=== PATIENT | female | born 1990 | race Caucasian/White ===

== ENCOUNTER 2022-08-07 07:09 | Outpatient (CLI) | payer OTHER, SELFPAY ==
--- NOTE | 2022-08-07 07:15 | CRLHL7_ITS ---
For Patients: As a result of the Cures Act, medical imaging exams and procedure reports are released immediately into your electronic medical record. You may view this report before your referring provider. If you have questions, please contact your health care provider. INDICATION: First trimester scan, establish dates. COMPARISON: None. TECHNIQUE: Real-time christiansen-scale imaging of the pelvis was performed. FINDINGS: Sonographic imaging demonstrates a single living intrauterine gestation. The embryo demonstrates a regular cardiac rate measuring 159 beats per minute. The embryo`s crown-rump length measurement of 1.7 cm corresponds to a gestational age of 8 weeks 1 day with a sonographic due date of 03/18/2023. There is a normal-appearing yolk sac. There are no gross abnormalities noted within the embryo at this early state of development. The gestational sac has a normal appearance. There is no evidence of a perigestational hemorrhage. The amount of fluid within the sac appears appropriate for gestational age. The cervix is closed. The myometrium appears normal. The ovaries are of normal size. Corpus luteal cyst right ovary. There are no suspicious fluid collections noted in the cul-de-sac. IMPRESSION: Normal first trimester OB ultrasound exam. Gestational age calculated at 8 weeks 1 day with a sonographic due date of 03/18/2023. Dictated by Abiel Caldera MD @ 08/07/2022 8:58:50 AM (Electronically Signed)
== END 2022-08-07 07:10 | disposition home or self-care (01) ==
PROVIDERS: Visit Provider Advanced Practice Midwife
DX: Z34.91 Encounter for supervision of normal pregnancy, unspecified, first trimester (principal); Z3A.08 8 weeks gestation of pregnancy
CPT/HCPCS: 76817

== ENCOUNTER 2022-08-07 08:55 | Outpatient (CLI) | payer OTHER, SELFPAY ==
[2022-08-07 14:15] LABS: Chlamydia DNA Amplified* NOT DETECTED (No Detected); GC DNA Amplified* NOT DETECTED (No Detected)
== END 2022-08-07 08:56 | disposition home or self-care (01) ==
PROVIDERS: Visit Provider Advanced Practice Midwife
DX: Z34.91 Encounter for supervision of normal pregnancy, unspecified, first trimester (principal); Z3A.08 8 weeks gestation of pregnancy
CPT/HCPCS: 0353U; 86592; 86703; 86762; 86787; 86803; 86850; 86900; 86901; 87086; 87340

== ENCOUNTER 2022-09-16 10:06 | Outpatient (CLI) | payer OTHER, SELFPAY | END 2022-09-16 10:07 | disposition home or self-care (01) | PROVIDERS: Visit Provider Obstetrics & Gynecology | DX: Z34.91 Encounter for supervision of normal pregnancy, unspecified, first trimester (principal); Z3A.13 13 weeks gestation of pregnancy | CPT/HCPCS: 81511; 82105 ==

== ENCOUNTER 2022-11-01 08:03 | Outpatient (CLI) | payer OTHER, SELFPAY ==
--- NOTE | 2022-11-01 08:15 | CRLHL7_ITS ---
For Patients: As a result of the Century Cures Act, medical imaging exams and procedure reports are released immediately into your electronic medical record. You may view this report before your referring provider. If you have questions, please contact your health care provider. INDICATION: Evaluate anatomy. COMPARISON: 08/07/2022 TECHNIQUE: Real time christiansen scale imaging of the fetus was performed as well as color Doppler analysis of the umbilical vessels. FINDINGS: Sonographic imaging demonstrates a single living intrauterine gestation. Fetus demonstrates a regular cardiac rate of 144 beats per minute. Fetus has a vertex position. The placenta lies anteriorly without evidence of placenta previa. The edge of the placenta is located 8.6 cm from the internal cervical os. Amniotic fluid volume appears normal. Single deepest vertical pocket: 5.4 cm. The cervix is closed and measures 3.6 cm in length. The composite ultrasound gestational age is calculated at 20 weeks 5 days with an estimated sonographic due date of 03/16/2023. The estimated weight is 343 grams which lies at the 36th %. The following biometric measurements were obtained: Biparietal diameter: 4.8 cm/20 weeks 4 days 57th% Head circumference: 18.4 cm/20 weeks 5 days 58th% Abdominal circumference: 15.1 cm/20 weeks 2 days 41st% Femur length: 3.2 cm/20 weeks 0 days 27th% The HC/AC ratio measures: 1.22 range (1.06-1.25) On anatomic survey, there is a normal appearance of the cerebral ventricles, cavum septi pellucidi, cisterna magna and cerebellum. The nose, lips, and facial profile appear normal. The cervical, thoracic and lumbar spine are well visualized and appear normal. There is a normal four-chamber heart view and the left and right ventricular outflow tracts appear normal. The diaphragm and stomach appear normal. The kidneys and bladder also appear normal. There is a normal three-vessel cord and cord insertion site. The four extremities appear normal. IMPRESSION: Normal OB ultrasound exam with concordance of clinical and sonographic dating. No intrinsic abnormalities noted on anatomic survey. Dictated by Abiel Caldera MD @ 11/01/2022 2:16:06 PM (Electronically Signed)
== END 2022-11-01 08:04 | disposition home or self-care (01) ==
LOC: US 08:03
PROVIDERS: Visit Provider Obstetrics & Gynecology
DX: Z34.92 Encounter for supervision of normal pregnancy, unspecified, second trimester (principal); Z3A.20 20 weeks gestation of pregnancy
CPT/HCPCS: 76805

== ENCOUNTER 2023-01-03 11:28 | Outpatient (CLI) | payer OTHER, SELFPAY | END 2023-01-03 11:29 | disposition home or self-care (01) | LOC: NFLDREF 11:29 | PROVIDERS: Visit Provider Physician Assistant | DX: Z34.93 Encounter for supervision of normal pregnancy, unspecified, third trimester (principal); Z3A.29 29 weeks gestation of pregnancy | CPT/HCPCS: 86592; 86850; J2791 ==

== ENCOUNTER 2023-02-17 08:55 | Outpatient (CLI) | payer OTHER, SELFPAY ==
[2023-02-18 11:14] LABS: Strep B DNA Probe NEGATIVE (Negative)
[2023-02-19 23:13] LABS: Strep B Pen/Amox Allergy No
== END 2023-02-17 08:56 | disposition home or self-care (01) ==
LOC: NFLDREF 08:55
PROVIDERS: Visit Provider Obstetrics & Gynecology
DX: Z34.90 Encounter for supervision of normal pregnancy, unspecified, unspecified trimester (principal)
CPT/HCPCS: 87081; 87653

== ENCOUNTER 2023-03-07 04:55 | Inpatient (IN) | payer OTHER, SELFPAY ==
[2023-03-07] VITALS (69 sets, daily range): BP systolic 81–157; BP diastolic 47–120; PULSE 65–125; RESP 16–22; TEMP 36.6–37.7; O2SAT 91–100; BMI 32.5
[2023-03-07 05:15] LABS: Basophils Absolute Auto 0.02 K/uL (0.00-0.30); Basophils Percent Auto 0.2 % (0.0-3.0); Eosinophils Absolute Auto 0.09 K/uL (0.00-0.50); Eosinophils Percent Auto 0.9 % (0.0-7.0); Hematocrit 34.4 % (33.0-51.0); Hemoglobin* 11.2 gm/dL (12.0-16.0); Immature Granulocytes Abs Auto 0.05 K/uL (0.00-0.30); Immature Granulocytes Pct Auto 0.5 %; Mean Corpuscular HGB Conc 33 gm/dL (32-36); Mean Corpuscular Hemoglobin 28 pg (26-34); Mean Corpuscular Volume 87 fL (80-100); Monocytes Percent Auto 8.7 % (0.0-11.0); Neutrophils Percent Auto 74.7 % (42.0-72.0); Platelet Count* 222 K/uL (140-440); RDW Coefficient of Variation % 13.1 % (11.5-15.5); Red Blood Count 3.95 m/uL (4.00-5.20); White Blood Count* 10.31 K/uL (4.50-11.00)
[2023-03-07] MEDS: LACTATED RINGERS 1000 ML 1,000 ML 600 ML IV ×2 (05:16→06:15)
[2023-03-07 05:27] LABS: Slide Review Reflex No
--- NOTE | 2023-03-07 05:36 | W.PM.LDBA ---
Subjective History of Present Illness Date Seen: 03/07/23 Narrative: Patient is being admitted to Labor and Delivery for spontaneous onset of labor. She is a 32 year old at 38 3/7 weeks gestation. Her full history and physical was dictated by Dr. Harvey on 02/24/23. Please see this for details. She was planning a repeat section on 03/18/23, but has decided she would rather attempt TOLAC. She is a good candidate. Consent form was reviewed and signed. Specific Issues/Plans : Chandan 1. Hx of anxiety and ADHD -has previously taken medication for anxiety, unsure which, stopped last fall -ADHD never treated -Start on Lexapro 10 mg at 1st visit 2. Hx of for breech -Favors repeat - Scheduled 03/18/[address] Harvey 3. A neg Blood Type Recommend Rhogam at 28 weeks: given 01/03/23 Recommend Rhogam pp 4. Anemia, hemoglobin 10.8 Ferrous sulfate 325 every other day Repeat hemoglobin at 34 weeks: 11.2 Pap due PP contraception: Depo provera COVID: declines Flu: 02/24/23 Tdap: 01/03/2023 OB - Problem Based A/P Additional Plan (1) Spontaneous onset of labor: Status: Acute (2) Previous delivery affecting : Status: Acute Plan Desires epidural for pain management. TOLAC consent signed. Delivery/Labor/Induction Plan Plan: expectant management OB Exam Physical Exam Vital signs: Pulse BP 79 131/80 03/07/23 04:39 03/07/23 04:39 Narrative: Lungs: clear to auscultation bilaterally CV: RRR Detailed Labor and Delivery Exam Patient Gravid: Yes Dilation (cm): 3 Effacement (%): 90 Cervix position: mid Consistency: soft Contraction Frequency: 2 minutes Tachysystole: No Contraction intensity: Strong/Firm Fetus (Single) Station: -2 Amniotic Membrane Status: intact Heart Rate Baseline: 130 Monitor Accelerations: Present Monitor Decelerations: None Shelter Variability: Moderate (6-25)
[2023-03-07] MEDS: ROPIVACAINE 0.2% 100 ml 100 ML 12 MG EPIDURAL ×2 (06:15→13:47)
[2023-03-07] MEDS: ROPIVACAINE 0.2 % PF 10 ML INJ 20 MG EPIDURAL (06:15)
[2023-03-07] MEDS: LIDOCAINE 2% (PF) 5 ML VIAL EPIDURAL (06:16)
--- NOTE | 2023-03-07 06:34 | PM.ANBPRC ---
[facility] [place] History (Updated 03/07/23 @ 05:44 by Yoly Fitzgerald MD) Rh negative status during ?O26.899 - Other specified related conditions, unspecified trimester (ICD-10) ?Z67.91 - Unspecified blood type, rh negative (ICD-10) History of varicella ?Z86.19 - Personal history of other infectious and parasitic diseases (ICD-10) History of recurrent urinary tract infection ?Z87.440 - Personal history of urinary (tract) infections (ICD-10) Dysmenorrhea ?N94.6 - Dysmenorrhea, unspecified (ICD-10) Surgical History (Updated 11/28/22 @ 15:25 by Catherine Harvey MD) [place] teeth extracted ?K08.409 - Partial loss of teeth, unspecified cause, unspecified class (ICD-10) Status post primary low transverse section ?Z98.891 - History of uterine scar from previous surgery (ICD-10) Family History (Updated 08/07/22 @ 08:56 by Shakira Matias CNM) Maternal Grandfather Leukemia Stroke Heart disease Myocardial infarction Skin cancer Maternal Grandmother Dementia Paternal Grandfather Colon cancer Father High blood pressure Brother Depression Social History (Updated 02/24/23 @ 09:03 by Catherine Harvey MD) Narrative: Non-smoker SOCIAL? ? Education: bachelors? ? 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 ? Partner: Chandan, , sales? ? Lives with: Chandan, daughter Asif Pets: dogs? ? Abuse: Denies past Safe at home with current partner ? ? Special Diet: Denies? ? Ok with a blood transfusion: yes? ? Culture or shinto beliefs: denies? RISK FACTORS? ? Exercise Times/wk: beach body? ? Depression/Anxiety: Anxiety, ADD? ? Previous Treatments Therapy KATHIE: 9 PHQ 9: 7? ? Seat Belt Use: Routinely ? Smoking: Denies past/present? ? Alcohol/day: Denies while ? ? Caffeine: 1 pop a day. ? ? Drug Use: Denies past/present? ? Smoking Status: Never smoker Little interest or pleasure in doing things: not at all Feeling down, depressed, or hopeless: not at all Meds Home Medications and Allergies Home Medications Medication Instructions Recorded Confirmed Type prenat.vits,andra,hhq-kpje-iwhnm 1 tab PO QDAY 08/07/22 03/07/23 History Allergies Allergy/AdvReac Type Severity Reaction Status Date / Time No Known Allergies Allergy Unknown Verified 03/07/23 06:33 Results Labs Labs: Laboratory Results - last 24 hr 03/07/23 05:05 WBC 10.31 RBC 3.95 L Hgb 11.2 L Hct 34.4 MCV 87 MCH 28 MCHC 33 RDW Coeff of Shayna 13.1 Plt Count 222 Neut % (Auto) 74.7 H Lymph % (Auto) 15.0 L [place] % (Auto) 8.7 Eos % (Auto) 0.9 Baso % (Auto) 0.2 Neut # (Auto) 7.70 H Lymph # (Auto) 1.50 [place] # (Auto) 0.90 Eos # (Auto) 0.09 Baso # (Auto) 0.02 Abs Immat Gran (auto) 0.05 Imm/Tot Granulo (auto) 0.5 Vital Signs Vital Signs: Last Vital Signs Pulse 86 03/07/23 06:33 BP 116/60 03/07/23 06:33 Pulse Ox 98 03/07/23 06:28 Weight: 83.461 kg Height: 160.02 cm Anesthesia Procedures Epidural Insertion Patient Location: OB Start Time: 05:30 Stop Time: 06:34 Start Date: 03/07/23 Stop Date: 03/07/23 Reason for Block: procedure for pain Patient Position: sitting Performed By: Mikal Talbot Preanesthetic Checklist: IV checked, risks and benefits discussed, surgical consent, monitors and equipment checked, pre-op evaluation, timeout performed and anesthesia consent Prep: chlorhexidine gluconate Monitoring: blood pressure monitoring, continuous pulse oximetry and heart rate Approach: midline Vertebral Space: lumbar (1-5) Epidural Technique: TROY air Needle Type: Tuohy needle Injection Technique: continuous catheter Needle gauge: 17 Needle Length (cm): 10 cm Needle Insertion Depth (cm): 7 Catheter Gauge: 19 Catheter Type: multi-orifice Catheter at skin depth (cm): 13 Test Dose Result: negative and lidocaine 1.5% with epinephrine 1 to 200,000
[2023-03-07] MEDS: OXYTOCIN 30 unit/500 ML in NS 30 UNIT/500 ML BAG IVPB (09:51)
[2023-03-07] MEDS: LACTATED RINGERS 1000 ML 1,000 ML 125 ML IV ×4 (14:39→19:31)
[2023-03-07] MEDS: CEFAZOLIN 2 GM INJ IVP (15:11)
[2023-03-07] MEDS: AZITHROMYCIN 500 MG in 0.9 % SODIUM CHLORIDE 250 ml 250 ML 255 MG IVPB (15:30)
--- NOTE | 2023-03-07 15:39 | CRLHL7_ITS ---
For Patients: As a result of the Century Cures Act, medical imaging exams and procedure reports are released immediately into your electronic medical record. You may view this report before your referring provider. If you have questions, please contact your health care provider. Indication: Emergent , check for foreign body. Technique: Abdomen 2 views. Permanently recorded images are archived. Comparison: None. Findings/Impression: Lines and tubes: Probable epidural catheter projects over the mid lumbar spine. No other intra-abdominal medical anthropologist or foreign body identified. Bowel: Nonobstructive bowel gas pattern. Normal colonic stool burden. Other: The osseous structures are unremarkable for age. The lung bases are clear. Findings discussed with Dr. Nieto at 4:20 PM PST on 03/07/2023. Dictated by Eder Lynn MD @ 03/07/2023 6:12:54 PM (Electronically Signed)
[2023-03-07] MEDS: TRANEXAMIC ACID 100 MG/ML INJ 1000 MG IV ×2 (16:05→16:35)
[2023-03-07 16:47] LABS: INR 0.98 (0.91-1.10); Prothrombin Time 13.5 Seconds
[2023-03-07 16:48] LABS: Partial Thromboplastin Time* 24 Seconds (23-33)
[2023-03-07 16:50] LABS: Fibrinogen* 379 mg/dL (200-450)
--- NOTE | 2023-03-07 16:50 | SUR.OPER ---
x-ray was taken at end of procedure to ensure no needles or laps were left in patient.
--- NOTE | 2023-03-07 17:35 | P.NB_ITS ---
Nerve Block Nerve Block Time Seen by Provider: 17:25 Date Seen: 03/07/23 Type of block requested by surgeon for post-operative analgesia: TAP Side: bilateral Time out performed: Yes Verification of patient name: Yes Verification of date of : Yes Site marking: site marked Name of person performing procedure: Anthony Mulligan Continuous monitoring Was continuous monitoring of O2 sat, B/P, court recording monitor, recorded every 15 minutes?: Yes Procedure Checklist: sterile prep, needles and gloves Ultrasound guided. Images saved: Yes Medications given in 5ml increments after negative aspiration: Marcaine %: 0.25 mL: 30 Needle gauge: 20 and Exparel mL: 10 Needle gauge: 20 Patient tolerated procedure well: Yes Additional comments: Injected in 5ml increments after negative aspiration Block Charges Block Charge (with Pro Fee): TAP Bilateral Use of Ultrasound Machine for Block: Yes- US Guidance/pain block
[2023-03-07] MEDS: fentaNYL 100 MCG/2 ML inj 50 MCG IVP ×2 (17:36→17:44)
--- NOTE | 2023-03-07 17:36 | P.ANES_ITS ---
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
--- NOTE | 2023-03-07 17:39 | PM.OBPNL ---
Subjective Time Seen by Provider: : Date Seen: 03/07/23 Narrative: I presented to examine patient after she is comfortable with an epidural. She decided to TOLAC as she went into labor on her own and progressing well. I did speak to her about risk of TOLAC, the biggest risk being uterine rupture. There is a 0.5-0.9% chance of uterine rupture with one prior low transverse section and 0.9-1.3%. Due to this risk, we will not be using prostaglandins for induction of labor. Pitocin will be used as needed. We discussed that in the event of uterine rupture, there could be catastrophic outcome including maternal hysterectomy, transfusion, infection, intensive care unit admission, maternal , , and mental handicap. There is up to a 25% risk of or neurological damage if rupture does occur. We also discussed that an elective repeat section has risks as well. These include bleeding, infection, damage to the uterus (possibly requiring a hysterectomy), and damage to bladder and bowel. Additionally, babies born by section have a slightly increased risk of needing oxygen temporarily compared to babies born vaginally. Overall, the probability of successful is high given her spontaneous labor and indication for last CD was for breech. The factors that increase the probability of success include a prior vaginal and spontaneous labor. Factors that decrease the probability of success are history of section for labor dystocia, increased maternal age, gestational age greater than 40 weeks, maternal obesity, preeclampsia, and increased size. Patient feels well counseled and she strongly desires trial of labor. Verbal consent obtained for AROM Objective Vital Signs: Last Vital Signs Temp 99 F 03/07/23 13:32 Pulse 96 03/07/23 14:19 BP 123/104 H 03/07/23 14:19 Pulse Ox 92 03/07/23 15:02 Pelvic Exam Dilation (cm): 5 Effacement (%): 90 Station: -2 Contractions Monitor mode: External Contraction pattern: Regular Contraction intensity: Strong/Firm Pitocin Rate (mU/min): 0 Assessment Assessment: active labor Station: -2 Amniotic Membrane Status: AROM Status: Category l Heart Rate Baseline: 130 Central Control Room Operator Variability: Moderate (6-25) Monitor Accelerations: Present Monitor Decelerations: None Plan Plan: AROM with thin meconium noted. Will start titrating Pitocin as her contractions as spacing out
--- NOTE | 2023-03-07 18:33 | P.OBPRC_ITS ---
Procedure Time Seen by Provider: 15:05 Date of procedure: 03/07/23 Pre-op diagnosis: Nonreassuring heart tracing concern for uterine rupture. Post-op diagnosis: other (Confirmed uterine rupture) Procedure Done: Global Will [facility] bill your pro fee for this procedure?: Yes Blood Loss Measurement Type: QBL Bakri Used: No IV fluids (mL): 2,000 Surgeon: Belem Nieto MD Slate Roofer: Kimmie Lorenzo MD Anesthesia type: General Procedure Description: DELIVERY BY EMERGENCY SECTION Date of Service: 03/18/2023 Delivery time: 1516 Summary: Stella was admitted for spontaneous labor at 0330. She has a scheduled repeat delivery with myself on 03/17. She was counseled by Dr. Fitzgerald overnight about repeat delivery versus TOLAC. Patient opted for TOLAC given that she was in spontaneous labor. She had an epidural placed at 0615. I reaffirmed her decision prior to AROM and starting titrating Pitocin at 0925. She had thin meconium with AROM. She progressed appropriately after augmentation of labor. strip was category 1 until she reached 7.5 cm at 11:23 a.m. she had a couple of small variable decelerations that resolved with repositioning. At 1324 have late decelerations down to the 80s-90s. Pitocin was at 2u. She was reposition on right lateral decubitus and Pitocin was turned off. She had good recovery with those interventions. She was also found to be complete/100% effa viry/+1 @ 1324. She began pushing with RN @1356. She had small variables throughout pushing with spontaneous recovery. Moderate variability. I presented to push with her at 1408. station was +1 at that time. Great maternal effort with appropriate descent. She had small intermittent variables with pushing that recovered spontaneously. She started having late deceleration 1438 and LR bolus was administered with good recovery. station was +3 at this point, OT positioning, and maternal effort continued to be adequate. At 1450, Stella reached +4 station with pushing. She had independent separation of her labias with hair visible at perineum. I became more concern with heart tone at that point as recovery was slower than it had previously been. I discussed with Stella that if we do not achieve delivery within the next few contractions and fetus continues to have late decelerations, I would recommend delivery. She is not a candidate for operative delivery due to OT positioning. Fetus still had moderate variability at this point. Stella continued to push well but suddenly started complaining of increased abdominal pain @1503. Previously she reported increased intense perineal pressure but this pain is new and higher in her abdomen. She also reported sudden onset of nausea and can't stop involuntarily pushing. Fetus had a prolonged deceleration unre sponsive to repositioning or scalp stimulation for 4 minutes and an emergency CD was called at @1505. heart tones in the 100s in the OR. I check her again in the OR and loss of station was noted - station was 0 at that point. I requested general anesthesia instead re-dosing her epidural due to clinical diagnosis of uterine rupture. She underwent a repeat delivery. Anesthesia induction at 1514. Pfannenstiel incision was made @1515. Delivery Finding: Upon blunt entry through the peritoneum into the intra-abdominal cavity, placenta and fetus was noted to be free floating in the abdomen. Entire anterior lower uterine segment was noted to be dehisced. A 5 cm extension was also noted extending from the midline of the hysterotomy caudad to just superior the the bladder. Bladder noted to be completely intact. Meconium stained fluid was noted intraabdominally. Normal bilateral fallopian tubes and ovaries. APGARs: 1/2/2/2/3 Weight: Pending Cord gases sent Primary Indication: Uterine rupture Procedures: Repeat section - spontaneous rupture of lower uterine segment resulting in a T shaped defect. Active segment was not involved in the uterine rupture Specimens removed: Placenta Surgeon: Belem Nieto MD Slate Roofer Surgeon: Kimmie Lorenzo MD Anesthesia: Epidural, general anesthesia, TAP block Report: Splash prep with iodine. Prophylactic antibiotic, 2 g of Ancef and 500 mg of Azithromycin was given in the OR. After arrival to the operating room patient was placed in the supine position with left lateral tilt after administration of general anesthesia. Laparotomy A pfannenstiel incision was made through the anterior abdominal wall with #10 scalpel approximately 2 cm above the pubic symphysis. The incision was extended sharply with the #10 scalpel through the subcutaneous tissue to the level of fascia. The fascia was entered sharply with a #10 scalpel (Pfannenstiel) in the midline and extended in semi-elliptical fashion with bluntly with digits. The rectus muscles were in the midline bluntly with digits. The peritoneum was then entered bluntly. The peritoneal incision was enlarged bluntly by lateral traction from the surgeon's and pathology assistant's hand. Fetus and placenta was noted to be free floating in the abdomen upon entry. Delivery Fetus was delivered cephalic with applied abdominal pressure. Umbilical cord was immediately clamped and cut. Fetus was expeditiously handed off to the pediatric team. Placenta was also removed from abdomen. With delivery of the baby and placenta, completed rupture of the lower transverse uterine segment was noted. A 5 cm extension was also noted extending from the midline of the hysterotomy caudad to just superior the the bladder. Ring forceps were placed at bilateral uterine angles, as well as the inferior apex of the extension. The uterus was exteriorized. Closure Uterine cavity was cleaned after placental delivery with lap sponge x 2. The uterine extension was closed 1st with 2-0 Vicryl in a running locking manner. The hysterotomy was closed in 2 layers with stitches using 0 vicryl with continuous locking stitches and 0-monocryl for imbrication layer. Two [id number] were placed at left uterine angle. The uterus was replaced inside the abdominal cavity. Bleeding was noted to be coming from the extension. Ulysses retractor was inserted into the abdomen. An imbricating layer was placed along the uterine extension. An extra lsckwy-st-fiifd was also placed at midline of the extension. Wmckbq-nr-kehvk of 2-0 Vicryl was placed on the serosa of the bladder dome due to obvious arterial bleed. Hemostasis was achieved as needed with electrocautery. The ovaries/tubes/uterine surface were evaluated. They were found to be normal. Copious amount of irrigation performed due to meconium stained amniotic fluid in the patient's intra-abdominal cavity. Pancho applied on hysterotomy, extension, and bladder serosa. Ulysses retractor removed and hemostasis was confirmed again. After excellent hemostasis was assured at rectus muscle, fascia was closed with running stitches using 0-vicryl. Subcutaneous layer was irrigated. Hemostasis was checked for and found to be adequate. The subcutaneous layer was closed with running Vicryl sutures. X-ray was performed at this time as initial count was not done. Preliminary read only showed epidural catheter and no other retained object in the patient's body. The skin was closed with monocryl subcuticular sutures . The incision was cleaned and covered with Steri-Strips and silver dressing. Silver dressing was used as patient did no receive full sterile prep. She will also be on 24 hours of IV antibiotic as well. Intraoperative Complications: Uterine rupture QBL: 693 cc Fluid: 2000 cc Urine: 400 cc - mildly blood tinged upon catheter insertion. Uterotonics: 40 u of pitocin, 1g of TXA x2, 0.2 mg of Methergine x1. Disposition: The patient tolerated the procedure well. She was recovered in Obstetric PACU for close monitoring in stable condition, with a contracted uterus and normal transvaginal bleeding. The infant was indutabed and transferred to [facility]. The placenta was sent to pathology. Debrief with OR team performed at the conclusion of the procedure. Patient should never labor. Recommend prelabor delivery between 36-37 weeks. I favor 36 weeks due to extent of uterine rupture.
--- NOTE | 2023-03-07 18:45 | SUR.PHASEI ---
patient met discharge criteria per anesthesia.
--- NOTE | 2023-03-07 18:45 | SUR.PHASEI ---
drained 1300cc out of carroll catheter
[2023-03-07] MEDS: KETOROLAC 30 MG/ML inj IVP (19:11)
[2023-03-07] MEDS: SODIUM CHLORIDE 0.9 % (FLUSH) 10 ML SYRINGE IVF (19:13)
--- NOTE | 2023-03-07 20:10 | PM.OBPNVD1 ---
OB - PN:Subj Subjective Time Seen by Provider: 20:10 Date Seen: 03/07/23 Narrative: Spoke with her spouse, Chandan, immediately after the delivery to debrief him on Stella's emergency delivery. After Stella was recovered from general anesthesia and more alert, I discussed the events of her delivery with her. I described her labor course, clinical assessment, decision for emergency delivery under general anesthesia, and intraoperative finding of uterine rupture, and her overall surgery in full details. Stella was understandably overwhelmed. Pediatric team did speak to her about anticipated plan for her baby. She expressed a strong desire to go be with baby Daya. She asked about transfer/ early discharge to be with her baby. Unfortunately, the transfer would not be accepted due to it being a lateral transfer and not a transfer to a higher level of care. Additionally, she had major abdominal surgery and is very early in her post operative recovery course. I advised at least 24 hours inpatient observation prior to discharge. Stella was tearful and expressed regret over the decision to but is consolable. She wished she'd adhered to the initial plan of repeat delivery but became optimistic about her chance of success after presenting in spontaneous labor. I validated her of motion and emphasized that nothing that happened was her fault. She made the decision she thought was best with the information she had in the moment. Moving forward, I encouraged that she and Chandan monitor her mood symptoms vigilantly. Mothers who underwent emergency delivery has the high rate of depression/PTSD. It is very important she keeps her visit so we can screen for theses symptoms and treat her in at timely and appropriate manner. She asked if her recovery would be similar to her last section which was a planned primary delivery for breech presentation. I anticipate that she will have a more difficult recovery physically due being in labor, pushing, and undergoing an emergency surgery. Stella did ask about risks for future . Her desires four children. She is leaning toward three children. I discussed that she is at increased risk for scar ectopic, abnormal placentation, and repeat uterine rupture. The recommendation after a uterine rupture in the next is to deliver via repeat delivery between 36-37 weeks. I informed her that I favor 36 weeks due to the extent of the uterine rupture. Stella and Chandan expressed gratitude and verbalized understanding. All questions answered to their satisfaction. They will let us know if they have further questions. OB - PN: Obj Exam Physical Exam: Vital signs: Temp Pulse Resp BP Pulse Ox O2 Del Method O2 Flow Rate 98.9 F 93 18 141/83 H 100 Room Air 2 03/07/23 20:06 03/07/23 20:06 03/07/23 20:06 03/07/23 20:06 03/07/23 20:06 03/07/23 18:25 03/07/23 20:06 Narrative: Physical exam: General: Patient is tearful Psych: Alert and oriented x3, full affect HEENT: Normocephalic, atraumatic Lungs: On 2L of nasal canula Abdomen: Uterus firm - 2 cm below umbilicus. Abdomen soft, appropriately tender. No guarding, distention, or rebound. Silver dressing in place Skin: No lesions or rashes Lower extremities: SCDs in place. Pelvic exam: Small amount of bleeding on pad. Urine is clear in Carroll catheter bag. Urinary Catheter Management: Urethral: Cath placed during this visit: yes Urethral indwelling: Yes Reason for continuing: epidural catheter Insertion date: 03/07/23 Insertion time: 15:11 OB - PN: Obj Data Labs Labs: Laboratory Results - last 24 hr 03/07/23 03/07/23 05:05 16:20 WBC 10.31 RBC 3.95 L Hgb 11.2 L Hct 34.4 MCV 87 MCH 28 MCHC 33 RDW Coeff of Shayna 13.1 Plt Count 222 Neut % (Auto) 74.7 H Lymph % (Auto) 15.0 L [place] % (Auto) 8.7 Eos % (Auto) 0.9 Baso % (Auto) 0.2 Neut # (Auto) 7.70 H Lymph # (Auto) 1.50 [place] # (Auto) 0.90 Eos # (Auto) 0.09 Baso # (Auto) 0.02 Abs Immat Gran (auto) 0.05 Imm/Tot Granulo (auto) 0.5 INR 0.98 APTT 24 Fibrinogen 379 Blood Type A Negative Antibody Screen POSITIVE Antibody Identification Anti-D OB - PN: A/P Delivery Assessment and Plan (1) Spontaneous onset of labor: Status: Acute (2) Previous delivery affecting : Status: Acute (3) Delivery by emergency section: Problem details: Uterine rupture with undergoing TOLAC. Patient is to NEVER labor. Repeat delivery at 36 weeks. Status: Acute Assessment and Plan: Postoperative Review: - Admitted for: Spontaneous labor/TOLAC - Surgical procedure: Emergency delivery - Skin incision: Pfannenstiel - Closure: Sutures - Quantitative blood loss: 693 mL - Intraoperative Complications: Uterine rupture - Urine output: adequate - Preop Hgb: 11.2 - Postop Hgb: 11.5 Postoperative care: - Diet: Advance as tolerated - Fluid: Encourage oral intake - Activity: Encourage ambulation and incentive spirometry - Pain: Ibuprofen, tylenol and oxycodone - DVT prophylaxis: SCDs and TEDs when not ambulating Discharge Planning - Contraception: Depo Provera - Vaccines: None - Follow up in 5-7 days for incision check and removal of silver dressing/ BP check in clinic - Follow Up: follow-up at 2 and 6 weeks in clinic Baby's Status - Fetus: 1/2/2/2/3, female - Location: Transferred for NICU care and cooling to [place] Dispo: Patient is POD#0. Need the following milestones: ambulate, tolerating regular diet, voiding without carroll cath, passing flatus, and finishing her 24 hour course of antibiotic. Anticipate discharge POD#1/2.
[2023-03-07] MEDS: ACETAMINOPHEN 500 MG TABLET 1000 MG PO (20:12)
[2023-03-07 22:46] LABS: Creatinine* 0.8 mg/dL (0.5-1.5); Est. Creatinine Clearance* 85.06; Estimated Glomerular Filt Rate 102 ml/min; Hematocrit 35.2 % (33.0-51.0); Hemoglobin* 11.5 gm/dL (12.0-16.0); Mean Corpuscular HGB Conc 33 gm/dL (32-36); Mean Corpuscular Hemoglobin 28 pg (26-34); Mean Corpuscular Volume 87 fL (80-100); Platelet Count* 216 K/uL (140-440); Red Blood Count 4.06 m/uL (4.00-5.20); White Blood Count* 19.81 K/uL (4.50-11.00)
[2023-03-07 22:47] LABS: Alanine Aminotransferase* 16 U/L (4-35); Aspartate Amino Transferase* 50 U/L (12-35); Blood Urea Nitrogen* 12 mg/dL (5-24); Slide Review Reflex No
[2023-03-07] MEDS: SIMETHICONE 80 MG TAB.CHEW PO (22:54)
[2023-03-07 23:35] LABS: Total Protein Urine 16 mg/dL
[2023-03-07 23:36] LABS: Creatinine Urine 55.3 mg/dL
[2023-03-08] VITALS (9 sets, daily range): BP systolic 117–133; BP diastolic 66–87; PULSE 87–102; RESP 16–17; TEMP 36.4–37.2; O2SAT 95–98
[2023-03-08] MEDS: CEFAZOLIN 2 GM in 0.9 % SODIUM CHLORIDE Mini-bag 100 ML IVPB ×3 (00:33→16:18)
[2023-03-08] MEDS: KETOROLAC 30 MG/ML inj IVP ×4 (01:07→19:45)
[2023-03-08] MEDS: ACETAMINOPHEN 500 MG TABLET 1000 MG PO ×4 (02:14→23:26)
[2023-03-08] MEDS: LACTATED RINGERS 1000 ML 1,000 ML 125 ML IV (04:06)
[2023-03-08 07:21] LABS: Hemoglobin* 10.3 gm/dL (12.0-16.0)
[2023-03-08] MEDS: SODIUM CHLORIDE 0.9 % (FLUSH) 10 ML SYRINGE IVF (07:37)
--- NOTE | 2023-03-08 08:27 | PM.OBPNVD1 ---
OB - PN:Subj Subjective Time Seen by Provider: 08:10 Date Seen: 03/08/23 Narrative: Stella is doing fairly well this morning. Her pain is adequately controlled. She has been to the bathroom once after the Huff catheter was removed and is voiding without difficulty. Blood pressures were elevated last evening, but have been normal this morning. The infant was transferred following the delivery, and is reportedly doing well. She is breathing on her own. Cooling protocol is being done for neuro protection. Feeding plan: bottle. OB - PN: Obj Exam Physical Exam: Vital signs: Temp Pulse Resp BP Pulse Ox O2 Del Method O2 Flow Rate 98.4 F 98 16 124/78 95 Room Air 2 03/08/23 07:42 03/08/23 07:42 03/08/23 07:42 03/08/23 07:42 03/08/23 07:42 03/08/23 07:42 03/08/23 02:12 Constitutional: Constitutional: no acute distress Routine Respiratory Exam: Respiratory: Present CTA bilaterally Routine Cardiovascular Exam: Cardiovascular: Present RRR Routine Abdominal Exam: Abdominal: Present soft and tenderness (Appropriately tender) Comments: Silver Mepilex dressing present. Routine Extremities Exam: Extremities: Present pedal edema (1+); Absent tenderness Urinary Catheter Management: Urethral: Cath placed during this visit: yes, but has since been removed by the nurse Urethral indwelling: Yes Reason for continuing: decision to DC catheter Insertion date: 03/07/23 Insertion time: 15:11 Removal date: 03/08/23 Removal time: 05:30 OB - PN: Obj Data Labs Labs: Laboratory Results - last 24 hr 03/07/23 03/07/23 03/07/23 05:05 16:20 22:09 WBC RBC Hgb Hct MCV MCH MCHC Plt Count INR 0.98 APTT 24 Fibrinogen 379 BUN Creatinine Estimated Creat Clear Estimated GFR AST ALT Urine Creatinine 55.3 Protein/Creatinin Ratio 0.20 H Urine Total Protein 16 Antibody Identification Anti-D 03/07/23 03/08/23 22:23 07:01 WBC 19.81 H RBC 4.06 Hgb 11.5 L 10.3 L Hct 35.2 MCV 87 MCH 28 MCHC 33 Plt Count 216 INR APTT Fibrinogen BUN 12 Creatinine 0.8 Estimated Creat Clear 85.06 Estimated GFR 102 AST 50 H ALT 16 Urine Creatinine Protein/Creatinin Ratio Urine Total Protein Antibody Identification OB - PN: A/P Delivery Assessment and Plan (1) Delivery by emergency section: Problem details: Uterine rupture with undergoing TOLAC. Patient is to NEVER labor. Repeat delivery at 36 weeks. Status: Acute Plan 1. Continue close monitoring of blood pressure. 2. IV antibiotics to continue for full 24 hours. 3. Reassess later this afternoon for discharge planning. Likely discharge in the morning tomorrow. Plan day: 1 Plan: routine care
[2023-03-08] MEDS: DOCUSATE SODIUM 100 MG CAPSULE PO (11:15)
[2023-03-08] MEDS: OXYCODONE 5 MG TABLET PO ×3 (11:16→17:20)
[2023-03-08] MEDS: SIMETHICONE 80 MG TAB.CHEW PO ×2 (17:29→21:20)
[2023-03-09] MEDS: CEFAZOLIN 2 GM in 0.9 % SODIUM CHLORIDE Mini-bag 100 ML IVPB (01:11)
[2023-03-09] MEDS: KETOROLAC 30 MG/ML inj IVP (01:11)
[2023-03-09] MEDS: OXYCODONE 5 MG TABLET PO ×2 (01:44→09:16)
[2023-03-09] MEDS: ACETAMINOPHEN 500 MG TABLET 1000 MG PO (05:02)
[2023-03-09 05:04] VITALS: BP 136/93; PULSE 102; RESP 16; TEMP 37.3; O2SAT 93
[2023-03-09 09:07] VITALS: BP 132/86; PULSE 86; RESP 16; TEMP 36.6; O2SAT 96
[2023-03-09 09:15] VITALS: TEMP 36.6
[2023-03-09] MEDS: IBUPROFEN 600 MG TABLET PO (09:15)
[2023-03-09] MEDS: DOCUSATE SODIUM 100 MG CAPSULE PO (09:17)
--- NOTE | 2023-03-09 11:33 | P.DS_ITS ---
DS: Providers Provider Time Seen by Provider: 11:33 Date Seen: 03/09/23 Date of admission: 03/07/23 04:55 Primary care physician: Not a Local Provider Admitting Clinician: Yoly Fitzgerald MD Attending Physician on discharge: Yoly Fitzgerald MD Date of Discharge: 03/09/23 DS: Diagnosis Discharge Diagnosis (1) Delivery by emergency section: Status: Acute Problem details: Uterine rupture with undergoing TOLAC. Patient is to NEVER labor. Repeat delivery at 36 weeks. Exam Narrative: Exam Narrative: General: No acute distress Psych: Alert and oriented x3, full affect HEENT: Normocephalic, atraumatic Neck: No cervical adenopathy, no thyromegaly Heart: Regular rate and rhythm, no murmur rub or gallop Lungs: Clear to auscultation bilaterally Abdomen: Soft, NT, Mepilex silver dressing present, dry Lower extremities: Trace edema of feet Const: Vital Signs, click to edit/add: Vital Signs - 24 hr 03/08/23 12:25 03/08/23 16:10 03/08/23 17:21 Temperature 97.9 F 98.5 F 98.5 F Pulse Rate Pulse Rate [Right Pulse Oximeter] 87 96 Respiratory Rate 16 16 Blood Pressure [Le ft Arm] 124/84 133/83 Pulse Oximetry 95 96 Oxygen Delivery Me thod Room Air Room Air 03/08/23 19:39 03/08/23 21:22 03/08/23 23:53 Temperature 98.5 F 98.1 F 97.6 F Pulse Rate 98 Pulse Rate [Right Pulse Oximeter] 98 91 Respiratory Rate 16 16 16 Blood Pressure [Le ft Arm] 128/83 128/87 Pulse Oximetry 98 98 Oxygen Delivery Me thod Room Air 03/09/23 05:04 03/09/23 09:07 03/09/23 09:15 Temperature 99.1 F 98 F 98 F Pulse Rate Pulse Rate [Right Pulse Oximeter] 102 H 86 Respiratory Rate 16 16 Blood Pressure [Le ft Arm] 136/93 H 132/86 Pulse Oximetry 93 96 Oxygen Delivery Me thod Room Air Room Air OB - DS: Summary Hospital Course Hospital Course: The patient is a 32 year old G 2 P 1001 at 38 3/7 weeks gestation that was admitted to the Center at on 03/07/23 for spontaneous onset of labor. She elected to attempt trial of labor after section, and made good progress in labor. Unfortunately, she experienced a uterine rupture in the 2nd stage and proceeded to an emergent low-transverse delivery. She delivered a viable female infant who was subsequently transferred to a higher level of care for post resuscitative monitoring and cooling. She is bottle feeding. The patient was maintained IV antibiotics for 24 hours following delivery due to the emergent nature of the delivery. She remained afebrile and her vital signs were stable. Her pain control was adequate. Peripartum Data delivery method: Repeat Section (Emergent, for uterine rupture) Procedures: Procedures Operation Date: 03/07/23 15:15 Actual Procedure Side Surgeon p Emergency Section Belem Nieto MD complications: none Whigham Gender: Female Time Spent with Patient Time attestation: Total time spent providing and/or coordinating discharge services: Time spent: Less than 30 minutes Discharge Plan Discharge Disposition: Home, Self-Care Date of Admission: 03/07/23 04:55 Attending Provider on Discharge: Yoly Fitzgerald Primary Care Provider: Provider,Not a Local Condition: Stable Anticipated Discharge Date/Time: 03/09/23 11:37 Discharge Medications: New docusate sodium 100 mg Capsule 100 mg PO DAILY Qty: 30 0RF ibuprofen 600 mg Tablet 600 mg PO Q6H PRN (Reason: Pain) Qty: 30 0RF oxycodone 5 mg Tablet 5 - 10 mg PO Q6H PRN (Reason: Pain) Qty: 20 0RF Continued prenat.vits,andra,[id number] Tablet 1 tab PO QDAY escitalopram oxalate [Lexapro] 10 mg tablet 10 mg PO QDAY Qty: 30 1RF Rx Instructions: Take 1/2 tab for 2 weeks, then increase to full tab daily ferrous sulfate 325 mg (65 mg iron) tablet 325 mg PO Q OTHER DAY Qty: 90 1RF [id number] [Fioricet] 50-300-40 mg capsule 1 cap PO Q4-6H PRN (Reason: pain) Qty: 20 0RF Discharge Orders: Discharge Order (Routine); Ordered 03/09/23 Ordered By: Yoly Fitzgerald Activity Level: No strenuous activity Activity Detail: No lifting >20 pounds for 6 weeks. Nothing per vagina x 6 weeks. No driving for 1-2 weeks or while taking narcotic pain meds. Discharge Diet: Regular Follow Up Appointments: Provider,Not a Local [Primary Care Provider] - Forms: [employer] Info Instructions
== END 2023-03-09 12:07 | disposition home or self-care (01) | DRG 786 ==
LOC: OB OUT 04:55 → OB 04:55
PROVIDERS: Nurse Anesthetist, Certified Registered; Obstetrics & Gynecology; Admitting Provider Obstetrics & Gynecology; Visit Provider Obstetrics & Gynecology
PROC: 10D00Z1 Extraction of Products of Conception, Low, Open Approach (ICD-10-PCS; CPT 59514; principal; 2023-03-07 15:00)
DX: O66.41 Failed attempted vaginal birth after previous cesarean delivery (principal); O71.1 Rupture of uterus during labor; Z37.0 Single live birth; G89.18 Other acute postprocedural pain; O99.344 Other mental disorders complicating childbirth; F41.9 Anxiety disorder, unspecified; F90.9 Attention-deficit hyperactivity disorder, unspecified type; O99.02 Anemia complicating childbirth; D64.9 Anemia, unspecified; O26.893 Other specified pregnancy related conditions, third trimester; Z67.11 Type A blood, Rh negative; O76 Abnormality in fetal heart rate and rhythm complicating labor and delivery; O77.0 Labor and delivery complicated by meconium in amniotic fluid; Z3A.38 38 weeks gestation of pregnancy
CPT/HCPCS: 01967; 01968; 36415; 36430; 64488; 74018; 76942; 82565; 82570; 84156; 84450; 84460; 84520; 85018; 85025; 85027; 85384; 85461; 85610; 85730; 86850; 86870; 86880; 86900; 86901; 88307; 99140; A9270; C9290; J0330; J0456; J0665; J0690; J1100; J1885; J2210; J2371; J2405; J2590; J2704; J2791; J2795; J3010; J7050; J7120

== ENCOUNTER 2023-04-02 08:00 | Outpatient (CLI) | payer OTHER, SELFPAY | END 2023-04-02 08:01 | disposition home or self-care (01) | PROVIDERS: Visit Provider Registered Nurse | DX: R30.9 Painful micturition, unspecified (principal) | CPT/HCPCS: 87086 ==

== ENCOUNTER 2024-03-02 16:13 | Outpatient (CLI) | payer OTHER, SELFPAY | END 2024-03-02 16:14 | disposition home or self-care (01) | PROVIDERS: PCP Internal Medicine; Visit Provider Registered Nurse | DX: Z01.419 Encounter for gynecological examination (general) (routine) without abnormal findings (principal); Z13.6 Encounter for screening for cardiovascular disorders; Z13.1 Encounter for screening for diabetes mellitus; Z01.818 Encounter for other preprocedural examination; Z30.9 Encounter for contraceptive management, unspecified | CPT/HCPCS: 80061; 82947 ==